=== PATIENT | male | born 1955 | race Caucasian/White ===

== ENCOUNTER 2019-08-28 07:23 | Day surgery (SDC) | payer BC, OTHER ==
[~2019-08-28 07:23] MED LIST: PROPOFOL INJ 200 MG/20 ML VIAL IV ONE
[2019-08-28] MEDS ORDERED: ONDANSETRON HCL INJ/PF 4 MG/2 ML SDV IV PRN (08:59)
[2019-08-28] MEDS ORDERED: DIPHENHYDRAMINE HCL 50 MG/ML VIAL IV PRN (08:59)
--- NOTE | 2019-08-28 10:16 | Discharge Summary ---
Discharge Summary (SDC) - Discharge Final Diagnosis: Pandiverticulosis. Colon polyp at 75 cm. Date of Surgery: 08/28/19 Discharge Date: 08/28/19 Condition: Stable Treatment or Instructions: Discharge home. Diet as tolerated. Activity: Nonstrenuous. Follow-up with me in 7 to 10 days. Referrals: SUDHA AVENDANO MD [Primary Care Provider] - Discharge Diet: As Tolerated Respiratory Treatments at Home: Deep Breathing/Coughing, Incentive Spirometer Discharge Activity: Balance Activity w/Rest Home Care Assistance: None Needed Report the Following to Your Physician Immediately: Shortness of Breath, Nausea, Vomiting, Increase in Pain, Fever over 101 Degrees, Unusual Bleeding
--- NOTE | 2019-08-28 10:21 | Operative Report ---
Nonrecallable Operative Report DATE OF SURGERY: 08/28/19 PREOPERATIVE DIAGNOSIS: Screening for malignancy POSTOPERATIVE DIAGNOSIS: 1. Pandiverticulosis. 2. Small colon polyp at 75 cm. OPERATION: 1. Colonoscopy to the cecum. 2. Snare polypectomy at 75 cm. SURGEON: MARY ANN DAVALOS ANESTHESIA: LMAC TISSUE REMOVED OR ALTERED: Colon polyp at 75 cm COMPLICATIONS: None apparent ESTIMATED BLOOD LOSS: Minimal PROCEDURE: Procedure in detail: After informed consent was obtained, the patient was brought to the operating room and laid in the left lateral decubitus position. The endoscope was passed up the rectum, sigmoid colon, descending colon, across the transverse colon, down the ascending colon, and into the cecum. The ileocecal valve and appendiceal orifice were identified. The scope was then withdrawn, circumferentially noting the mucosa. The prep was fair. Multiple washings and suctioning's were required in order to visualize the entirety of the mucosa. This was successful. The scope was then withdrawn past the ascending colon, transverse colon, and into the descending colon. In the descending colon, approximately 75 cm a small polyp was identified. It was removed via hot snare polypectomy. After this was completed, the scope was withdrawn down the descending colon, sigmoid colon, and into the rectum. The patient had pandiverticulosis extending throughout the colon from the cecum to the sigmoid colon. Retroflexion maneuver was performed in the rectum, noting no significant internal hemorrhoids. The scope was straightened, air was suctioned from the rectum, the scope was removed, and the procedure was concluded. All sponge, instrument, and needle counts were correct x2. Condition: Stable.
[2019-08-28 11:15] VITALS: BP 136/84
== END 2019-08-28 11:15 | disposition home or self-care (01) ==
LOC: END 07:23
PROVIDERS: ATTEND Surgery
DX: Z12.11 Encounter for screening for malignant neoplasm of colon (principal); D12.6 Benign neoplasm of colon, unspecified; K57.30 Diverticulosis of large intestine without perforation or abscess without bleeding; I10 Essential (primary) hypertension; Z87.891 Personal history of nicotine dependence; Z85.828 Personal history of other malignant neoplasm of skin; Z79.899 Other long term (current) drug therapy
CPT/HCPCS: 45385; 36415; 84132; 88305 ×2; 00811; J2704; 811

== ENCOUNTER 2020-06-20 13:34 | Emergency (ER) | payer OTHER ==
--- NOTE | 2020-06-20 14:50 | ER Document Report ---
ED General - General Chief Complaint: Nausea/Vomiting/Diarrhea Stated Complaint: DIAHERRA/VOMITING/SHORTNESS OF BREATH/SHAKING/WEAK Time Seen by Provider: 06/20/20 14:21 Primary Care Provider: SUDHA AVENDANO MD [Primary Care Provider] - Follow up as needed Mode of Arrival: Wheelchair Information source: Patient Notes: 64-year-old male past medical history significant for hypertension and A. fib states he had 2 episodes of diarrhea and vomited once this morning. He states he then started shaking. Complains of ongoing nausea but denies any additional vomiting or diarrhea. Denies any bad food. Denies any recent antibiotics. No other ill contacts. No one else at home is ill. Denies any recent travel. Denies any COVID-19 exposure. Also complains of abdominal distention and cramping. TRAVEL OUTSIDE OF THE [place] IN LAST 30 DAYS: No - Related Data Allergies/Adverse Reactions: No Known Allergies Allergy (Verified 08/23/19 08:49) Home Medications: clonazapam, acebuterol Past Medical History - General Information source: Patient - Social History Smoking Status: Former Smoker Frequency of alcohol use: Heavy Drug Abuse: None Family History: Reviewed & Not Pertinent - Past Medical History Cardiac Medical History: Reports: Hx Atrial Fibrillation, Hx Hypertension Denies: Hx Coronary Artery Disease, Hx Heart Attack Pulmonary Medical History: Denies: Hx Asthma, Hx Bronchitis, Hx COPD - smoker, Hx Pneumonia Neurological Medical History: Denies: Hx Cerebrovascular Accident, Hx Seizures Musculoskeletal Medical History: Denies Hx Arthritis Past Surgical History: Denies: Hx Pacemaker - Immunizations Hx Diphtheria, Pertussis, Tetanus Vaccination: Yes - "Within the last few years" Review of Systems - Review of Systems Constitutional: Malaise EENT: No symptoms reported Cardiovascular: No symptoms reported Respiratory: No symptoms reported Gastrointestinal: Abdomen distended, Diarrhea, Nausea, Vomiting Musculoskeletal: No symptoms reported Skin: No symptoms reported Neurological/Psychological: No symptoms reported -: Yes All other systems reviewed and negative Physical Exam - Vital signs Vitals: Temp 98.3 F 06/20/20 13:35 - General General appearance: Alert, Other - Ill appearing but not toxic appearing In distress: Mild - HEENT Head: Normocephalic, Atraumatic Eyes: Normal Pupils: PERRL - Respiratory Respiratory status: No respiratory distress Chest status: Nontender Breath sounds: Normal Chest palpation: Normal - Cardiovascular Rhythm: Tachycardia Heart sounds: Normal auscultation Murmur: No Friction rub: No Baldo's crunch: No - Abdominal Inspection: Obese Distension: Distended Bowel sounds: Hypoactive Tenderness: Nontender Organomegaly: No organomegaly - Back Back: Normal, Nontender. No: CVA tenderness - Neurological Neuro grossly intact: Yes Cognition: Normal Orientation: AAOx4 [place] Coma Scale Eye Opening: Spontaneous [place] Coma Scale Verbal: Oriented [place] Coma Scale Motor: Obeys Commands [place] Coma Scale Total: 15 Speech: Normal Motor strength normal: LUE, RUE, LLE, RLE Sensory: Normal - Skin Skin Temperature: Warm Skin Moisture: Dry Skin Color: Normal Course - Re-evaluation Re-evalutation: 06/20/2020 18:00 Patient is resting comfortably states he is feeling slightly better. Aware that lab results are still pending. Continues to have diarrhea. Stool studies were collected and sent to the lab. 06/20/20 20:26 Patient is resting comfortably he is feeling better. Remains hypertensive. States he did not take his medication today he is asymptomatic with his elevated blood pressure. Denies chest pain, shortness of breath, no difficulty breathing. Patient with elevated troponins but is asymptomatic. Case was staffed with ED physician Dr. Rosas prior to discharge he is continuing to have multiple episodes of diarrhea in the emergency room. Stool samples were collected and sent to the lab. All signs are stable. Patient would like to be discharged home. 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 Patient was counseled on need to self quarantine for 14 days or until he gets a negative cover test result. Patient was counseled on need to do a clear liquid diet for the next 48 hours advance to bland diet as tolerated. Imodium as prescribed. Follow-up with primary care physician if not improving in 2 to 3 days. Patient was given strict return to the emergency room [facility]. Return for any new or worsening symptoms. All questions were answered. Patient verbalized understanding and agrees with plan of care. 06/20/20 20:28 06/20/20 20:29 Patient was evaluated during the global COVID-19 pandemic and that diagnosis was suspected/considered upon their initial presentation. Their evaluation, treatment and testing was consistent with current guidelines for patients who presents with complaints or systems that may be related to COVID-19. 06/20/20 20:42 - Vital Signs Vital signs: Temp Pulse Resp BP Pulse Ox 98.7 F 97 22 H 163/94 H 97 06/20/20 21:00 06/20/20 21:00 06/20/20 21:00 06/20/20 21:00 06/20/20 21:00 - Laboratory Result Diagrams: 06/20/20 15:37 06/20/20 15:37 Laboratory results interpreted by me: 06/20/20 06/20/20 06/20/20 14:04 15:37 15:37 RDW 17.0 H Lymph % (Auto) 9.6 L Seg Neutrophils % 80.4 H Sodium 134.9 L Glucose 166 H POC Glucose 142 H AST 118 H ALT 112 H Creatine Kinase 190 H Urine Protein Urine Ketones Urine Blood Urine Bilirubin Urine Urobilinogen 06/20/20 16:00 RDW Lymph % (Auto) Seg Neutrophils % Sodium Glucose POC Glucose AST ALT Creatine Kinase Urine Protein 100 H Urine Ketones 80 H Urine Blood SMALL H Urine Bilirubin SMALL H Urine Urobilinogen 4.0 H - EKG Interpretation by Me Rate: Tachycardia Additional EKG results interpreted by me: 06/20/2020 14:00 Patient with sudden onset of diarrhea, vomiting, shaking. Complains of abdominal distention. No recent illnesses. Labs, EKG, chest x-ray, CT abdomen pelvis. Stool studies if produces any additional diarrhea. 06/20/20 15:33 EKG interpreted by ER physician Dr. rosas. No acute STEMI, sinus tachycardia Rate 108 Right ventricular hypertrophy No T wave abnormalities. Discharge - Discharge Clinical Impression: Person under investigation for COVID-19, Diverticulosis, Hepatic steatosis Diarrhea Qualifiers: Diarrhea type: unspecified type Qualified Code(s): R19.7 - Diarrhea, unspecified Hypertension Qualifiers: Hypertension type: unspecified Qualified Code(s): I10 - Essential (primary) hypertension Condition: Stable Disposition: HOME, SELF-CARE Instructions: COVID-19 Guidance for Persons Under Investigation, Prescribed Antidiarrhea Medications ([facility]), Diarrhea, Nonspecific ([facility]), Intravenous (IV) Fluids ([facility]), Liver Function Abnormality ([facility]) Additional Instructions: Clear liquid diet for the next 48 hours. Medications as prescribed. Avoid alcohol due to elevated liver enzymes. You also need to follow-up with a primary care physician for your persistent hypertension. You will be notified of your COVID-19 test results. Your to self quarantine until you get those test results or for 14 days. Recheck with your primary care physician if not improving in 2 days. Return to the emergency room for any new or worsening symptoms. Prescriptions: Diphenoxylate HCl/Atrop Sulf [Lomotil 2.5 mg Tablet] 1 - 2 tab PO Q6HP PRN #20 tablet PRN Reason: Referrals: SUDHA AVENDANO MD [Primary Care Provider] - Follow up as needed
--- NOTE | 2020-06-20 15:10 | RADIOLOGY REPORT (SQ) ---
EXAM DESCRIPTION: CHEST SINGLE VIEW IMAGES COMPLETED DATE/TIME: 06/20/2020 3:04 pm REASON FOR STUDY: dyspnea COMPARISON: None. EXAM PARAMETERS: NUMBER OF VIEWS: One view. TECHNIQUE: Single frontal radiographic view of the chest acquired. RADIATION DOSE: NA LIMITATIONS: None. FINDINGS: LUNGS AND PLEURA: No opacities, masses or pneumothorax. No pleural effusion. MEDIASTINUM AND HILAR STRUCTURES: No masses. Contour normal. HEART AND VASCULAR STRUCTURES: Heart normal in size. Normal vasculature. BONES: No acute findings. HARDWARE: None in the chest. OTHER: No other significant finding. IMPRESSION: NO ACUTE RADIOGRAPHIC FINDING IN THE CHEST. TECHNICAL DOCUMENTATION: JOB ID: [id number] 2010 [employer]- All Rights Reserved Reading location - IP/workstation name: [email or web address]
[2020-06-20] MEDS ORDERED: RINGERS SOLUTION,LACTATED 1,000 ML IV ONE (15:35)
[2020-06-20 15:56] LABS: ABSOLUTE BASOPHILS # (AUTO) 0.1 10^3/uL (0.0-0.2); ABSOLUTE LYMPHOCYTES (AUTO) 0.8 10^3/uL (0.5-4.7); ABSOLUTE MONOCYTES (AUTO) 0.7 10^3/uL (0.1-1.4); ABSOLUTE NEUT (AUTO) 6.5 10^3/uL (1.7-8.2); BASOPHILS % (AUTO) 0.7 % (0-2); EOSINOPHILS % (AUTO) 0.1 % (0-6); HEMATOCRIT 48.4 % (37.9-51.0); HEMOGLOBIN 16.5 g/dL (13.5-17.0); LYMPHOCYTES % (AUTO) 9.6 % (13-45); MEAN CORPUSCULAR HEMOGLOBIN 31.1 pg (27.0-33.4); MEAN CORPUSCULAR HGB CONC 34.1 g/dL (32.0-36.0); MEAN CORPUSCULAR VOLUME 91 fl (80-97); MONOCYTES % (AUTO) 9.2 % (3-13); PLATELET COUNT 179 10^3/uL (150-450); SEGMENTED NEUTROPHILS % (AUTO) 80.4 % (42-78); TOTAL CELLS COUNTED % (AUTO) 100 %
[2020-06-20 16:05] LABS: INTERNATIONAL RATION (INR) 0.89; PROTHROMBIN TIME 12.3 SEC (11.4-15.4)
[2020-06-20 16:09] LABS: ALBUMIN 4.5 g/dL (3.5-5.0); ALKALINE PHOSPHATASE 57 U/L (38-126); ANION GAP 10 (5-19); ASPARTATE AMINO TRANSFERASE 118 U/L (17-59); BILIRUBIN,DIRECT 0.2 mg/dL (0.0-0.4); BILIRUBIN,TOTAL 1.3 mg/dL (0.2-1.3); BLOOD UREA NITROGEN 14 mg/dL (7-20); CALCIUM 9.4 mg/dL (8.4-10.2); CARBON DIOXIDE 24 mmol/L (22-30); CHLORIDE 101 mmol/L (98-107); CREATINE KINASE 190 U/L (55-170); GLUCOSE 166 mg/dL (75-110); POTASSIUM 4.4 mmol/L (3.6-5.0); TOTAL PROTEIN 7.5 g/dL (6.3-8.2)
[2020-06-20 16:22] LABS: CREATINE KINASE MB 4.11 ng/mL (<4.55); TROPONIN I 0.018 ng/mL
[2020-06-20 16:48] LABS: APPEARANCE,URINE SLIGHTLY-CLOUDY; BILIRUBIN,URINE SMALL (NEGATIVE); COLOR,URINE AMBER; GLUCOSE, URINE NEGATIVE (NEGATIVE); KETONES,URINE 80 mg/dL (NEGATIVE); LEUKOCYTE ESTERASE,URINE NEGATIVE (NEGATIVE); NITRITE,URINE NEGATIVE (NEGATIVE); PROTEIN,URINE 100 mg/dL (NEGATIVE); URINE SPECIFIC GRAVITY 1.026
--- NOTE | 2020-06-20 18:47 | RADIOLOGY REPORT (SQ) ---
EXAM DESCRIPTION: CT ABD/PELVIS WITH IV ONLY IMAGES COMPLETED DATE/TIME: 06/20/2020 4:46 pm REASON FOR STUDY: abdominal pain COMPARISON: None. TECHNIQUE: CT scan of the abdomen and pelvis performed using helical scanning technique with dynamic intravenous contrast injection. No oral contrast. Images reviewed with lung, soft tissue, and bone windows. Reconstructed coronal and sagittal MPR images reviewed. Delayed images for evaluation of the urinary system also acquired. All images stored on PACS. All CT scanners at this facility use dose modulation, iterative reconstruction, and/or weight based d osing when appropriate to reduce radiation dose to as low as reasonably achievable (ALARA). [facility]: Dose Right [facility]: CareDose [facility]: Dose Right [facility]: Teradose 4D [facility]: Regaalo CONTRAST TYPE AND DOSE: 69 mL Omnipaque 350- low osmolar. RENAL FUNCTION: GFR > 60. RADIATION DOSE: . LIMITATIONS: None. FINDINGS: LOWER CHEST: No significant findings. No nodules or infiltrates. LIVER: Moderate hepatomegaly. Severe hepatic steatosis. Focal fatty sparing at the gallbladder lizzie a. No suspicious hepatic mass although degree of steatosis limits evaluation. Hepatic and portal ve ins are patent. No biliary ductal dilation. SPLEEN: Normal size. No focal lesions. PANCREAS: No masses. No significant calcifications. No adjacent inflammation or peripancreatic fluid collections. Pancreatic duct not dilated. GALLBLADDER: No identified stones by CT criteria. No inflammatory changes to suggest cholecystitis. ADRENAL GLANDS: No significant masses or asymmetry. RIGHT KIDNEY AND URETER: Small right inferior pole renal cortical cyst. No solid mass. No signific ant calcifications. No hydronephrosis or hydroureter. LEFT KIDNEY AND URETER: Small left renal cortical cysts. No solid mass. No significant calcificati ons. No hydronephrosis or hydroureter. AORTA AND VESSELS: No aneurysm. No dissection. Renal arteries, SMA, celiac without stenosis. RETROPERITONEUM: No retroperitoneal adenopathy, hemorrhage or masses. BOWEL AND PERITONEAL CAVITY: There is colonic diverticulosis without evidence for diverticulitis. No bowel obstruction. No bowel wall thickening or mass. No significant inflammatory change. No ascit es or pneumoperitoneum. APPENDIX: Normal. PELVIS: The urinary bladder is decompressed. Prostate has normal size. No pelvic adenopathy. Small fat containing left inguinal hernia. ABDOMINAL WALL: No masses. No hernias. BONES: Mild spondylosis and degenerative disc disease. Vertebral body hemangioma is at L1 and L3. N o suspicious bone lesions. OTHER: No other significant finding. IMPRESSION: 1. Hepatomegaly with severe hepatic steatosis. 2. Colonic diverticulosis without evidence of diverticulitis. TECHNICAL DOCUMENTATION: JOB ID: [id number] Quality ID # [id number]: Final reports with documentation of one or more dose reduction techniques (e.g., Au tomated exposure control, adjustment of the mA and/or kV according to patient size, use of iterative reconstruction technique) 2010 [employer]- All Rights Reserved Reading location - IP/workstation name: [email or web address]
--- NOTE | 2020-06-20 20:28 | EKG REPORT ---
SEVERITY:- ABNORMAL ECG - SINUS TACHYCARDIA PROBABLE RIGHT VENTRICULAR HYPERTROPHY : Confirmed by: Bennett Serna MD 20-Jun-2020 20:27:51
[2020-06-20 21:01] VITALS: BP 163/94
== END 2020-06-20 21:01 | disposition home or self-care (01) ==
LOC: ER 13:34
DX: R19.7 Diarrhea, unspecified (principal); R11.2 Nausea with vomiting, unspecified; R14.0 Abdominal distension (gaseous); R10.9 Unspecified abdominal pain; R53.81 Other malaise; R79.89 Other specified abnormal findings of blood chemistry; K76.0 Fatty (change of) liver, not elsewhere classified; K57.30 Diverticulosis of large intestine without perforation or abscess without bleeding; R00.0 Tachycardia, unspecified; I11.9 Hypertensive heart disease without heart failure; Z79.899 Other long term (current) drug therapy; Z87.891 Personal history of nicotine dependence; Z20.828 Contact with and (suspected) exposure to other viral communicable diseases
CPT/HCPCS: 93005; 99284; 96360; 36415; 87045; 87205; 87209; 82553; 82962; 82550; 87177; 85025; 85610; 87635; 80053; 81001; 84484; 71045; 74177; 93010; J7120; C9803